=== PATIENT | female | born 1990 | race Caucasian/White ===

== ENCOUNTER 2020-01-01 18:00 | Inpatient (IN) | payer BC ==
[~2020-01-01 18:00] MED LIST: Bupivacaine/Epinephrine 0.25% 30 ML VIAL ONE; Butorphanol Tartrate 1 MG/ML VIAL SLOW IVP PRN; HYDROcodone/Acetaminophen 5/325 mg Tablet PO PRN; Ibuprofen 800 MG TAB PO PRN; Lidocaine 1% (PF) 30 ML VIAL SC PRN; NS / Oxytocin 40 units/1000ml 1,000 ML IV PRN; Ondansetron PF 4 MG/2 ML Vial IVP PRN; Promethazine HCl 25 MG/ML VIAL IM PRN; hydrALAZINE 20 MG/ML VIAL SLOW IVP PRN
[2020-01-01] MEDS ORDERED: Misoprostol 100 MCG TAB VAG SCH ×2 (20:00→23:00)
[2020-01-01] MEDS ORDERED: Lactated Ringer's 1,000 ML IV SCH (20:00)
[2020-01-01 21:50] VITALS: BMI 46.2
[2020-01-01 23:28] LABS: Hemoglobin 12.9 g/dL (12.0-16.0); Mean Corpuscular HGB CONC 34.1 g/dL (32.0-36.0); Mean Corpuscular Hemoglobin 28.6 pg (27.0-31.0); Mean Corpuscular Volume 83.8 fL (78.0-98.0); Platelet Count 214 thou/uL (130-400); RBC Distribution Width 13.1 % (11.5-14.5); Red Blood Cell (RBC) Count 4.52 mill/uL (4.20-5.40); White Blood Cell (WBC) Count 13.3 thou/uL (4.8-10.8)
[2020-01-02 00:06] LABS: Syphilis Antibody Nonreactive (Nonreactive); Syphilis Antibody Index 0.04 S/CO (<1.00 Non-Reactive)
[2020-01-02 02:04] LABS: HBSAg Index 0.22 S/CO (0-0.99); Hep B Surf Ag Non-Reactive S/CO (NonReactive)
[2020-01-02] MEDS ORDERED: Fentanyl 4 mcg/Bup 0.1% Cadd 100 ML ONE ×3 (08:43→21:06)
[2020-01-02] MEDS: Lactated Ringer's 1,000 ML IV SCH ×2 (09:19→22:41)
[2020-01-02] MEDS ORDERED: Naloxone HCl 0.4 mg/ml Vial IVP PRN ×2 (09:19)
[2020-01-02] MEDS ORDERED: diphenhydrAMINE 50 MG/ML VIAL IVP PRN (09:19)
[2020-01-02] MEDS ORDERED: Lactated Ringer's 500 ML IV PRN (09:19)
[2020-01-02] MEDS ORDERED: EPHEDRINE 25 MG/5 ML SYRINGE SLOW IVP PRN (09:19)
[2020-01-02] MEDS ORDERED: Acetaminophen 325 MG TAB PO PRN (09:19)
[2020-01-02] MEDS ORDERED: Ondansetron PF 4 MG/2 ML Vial IVP PRN (09:19)
[2020-01-02] MEDS ORDERED: Promethazine HCl 25 MG/ML VIAL IM PRN (09:19)
[2020-01-02] MEDS ORDERED: Fentanyl 4 mcg/Bupivacaine 0.1% Cassette 100 ML EPIDURAL SCH (09:30)
[2020-01-02] MEDS ORDERED: Communication Order-Pharmacy FS SCH (09:30)
[2020-01-02] MEDS ORDERED: Bupivacaine 0.5% 10 ML VIAL ONE (15:30)
[2020-01-02] MEDS ORDERED: Fentanyl 100 MCG/2 ML VIAL ONE (15:30)
[2020-01-02] MEDS ORDERED: Lidocaine 1.5%/Epinephrine 1:200,000 5 ML AMPUL IJ ONE (20:04)
[2020-01-02] MEDS: NS w/ Oxytocin 10 units 500 ML IV SCH (20:48)
[2020-01-02] MEDS ORDERED: Misoprostol 200 MCG TAB ONE ×2 (23:38→23:39)
[2020-01-03] MEDS ORDERED: diphenhydrAMINE 25 MG CAP PO PRN (01:59)
[2020-01-03] MEDS ORDERED: Benzocaine-Menthol 82.5 ML CAN TOP PRN (01:59)
[2020-01-03] MEDS ORDERED: Ondansetron PF 4 MG/2 ML Vial IVP PRN (01:59)
[2020-01-03] MEDS ORDERED: Preparation H Ointment 28 GM TUBE PR PRN (01:59)
[2020-01-03] MEDS ORDERED: Lanolin Ointment 7 GM TUBE TOP PRN (01:59)
[2020-01-03] MEDS ORDERED: Promethazine HCl 25 MG/ML VIAL IM PRN (01:59)
[2020-01-03] MEDS ORDERED: HYDROcodone/Acetaminophen 5/325 mg Tablet PO PRN ×2 (01:59)
[2020-01-03] MEDS ORDERED: Bisacodyl 10 MG SUPP PR PRN (01:59)
[2020-01-03] MEDS ORDERED: NS / Oxytocin 40 units/1000ml 1,000 ML IV SCH (01:59)
[2020-01-03] MEDS ORDERED: Milk Of Magnesia 30 ML UDCUP PO PRN (01:59)
[2020-01-03] MEDS ORDERED: hydrALAZINE 20 MG/ML VIAL SLOW IVP PRN (01:59)
[2020-01-03] MEDS ORDERED: Zolpidem Tartrate 5 MG TAB PO PRN (01:59)
[2020-01-03] MEDS: Lactated Ringer's 1,000 ML IV SCH (04:23)
[2020-01-03] MEDS: NS w/ Oxytocin 10 units 500 ML IV SCH (04:23)
[2020-01-03] MEDS: Ibuprofen 800 MG TAB PO SCH ×3 (05:16→21:40)
--- NOTE | 2020-01-03 08:26 | OP ---
DATE OF PROCEDURE: 01/03/2020 PREDELIVERY DIAGNOSES: Gestational hypertension, class A2 diabetes, and unexplained elevated MSAFP at 37 weeks' gestation. POSTDELIVERY DIAGNOSES: Gestational hypertension, class A2 diabetes, and unexplained elevated MSAFP at 37 weeks' gestation. PROCEDURES PERFORMED: Spontaneous vaginal delivery with a second-degree midline laceration. ANESTHESIA: Epidural. ESTIMATED BLOOD LOSS: 150 mL. OPERATIVE FINDINGS: 1. Vigorous male infant, weight and Apgars pending, to nursery. 2. Second-degree midline laceration repaired with 2-0 chromic. 3. Correct counts of the procedure with intact placenta delivered. DISPOSITION: Routine recovery. DESCRIPTION OF PROCEDURE: The patient was induced and underwent an approximately 28-hour Cytotec and Pitocin induction. This included spontaneous rupture of membranes early in the a.m. of 01/01 with IUPC placement and Pitocin induction of labor after Cytotec. The patient had a slow, but progressive process through labor with occasional category 2 heart rate tracing punctuated by mostly category 1 heart rate tracing. The patient became complete complete at approximately 23:45 on 01/01 and began pushing at 0 to +1 station. She brought the baby down to the level of the peritoneum and I presented for delivery. She delivered in a controlled manner with second-degree midline laceration. The infant was placed on the maternal abdomen with delayed cord clamping and cutting, and nursery was in attendance. Usual cord blood sample was obtained. Placenta was delivered spontaneously less than 5 minutes after delivery and the midline laceration was repaired in the usual manner using a 2-0 chromic suture. The patient tolerated the procedure well, was entered into routine care. Anticipated discharge on 01/03 or 01/04 pending health. Job ID: [id number]
[2020-01-03] MEDS ORDERED: Adacel (T-DAP) 0.5 ML SYRINGE IM ONE (09:00)
[2020-01-03] MEDS: Prenatal Vitamin 1 TAB PO SCH (09:01)
[2020-01-03] MEDS: Docusate Calcium (SURFAK) 240 MG CAP PO SCH ×2 (09:02→21:40)
[2020-01-03] MEDS: Ferrous Sulfate 325 MG TAB PO SCH ×2 (09:02→17:23)
[2020-01-04] MEDS: Ibuprofen 800 MG TAB PO SCH ×2 (05:27→14:13)
[2020-01-04 05:56] VITALS: TEMP 97.8
--- NOTE | 2020-01-04 08:11 | PDOC.PP ---
Post Progress Note Post Day #: 2 PO intake tolerated: yes Flatus: yes Ambulation: yes Vital Signs (12 hours) Temp Pulse Resp BP Pulse Ox 01/04/20 05:24 97.8 F 97 14 132/65 96 01/04/20 00:50 97.7 F 107 H 14 135/69 97 Weight Weight 278 lb Result Diagrams: 01/01/20 23:17 Additional Labs: Post Labs Blood Type AB POSITIVE 01/01/20 23:17 Hep Bs Antigen Non-Reactive S/CO (NonReactive) 01/01/20 23:17 - Assessment/Plan doing well poat day 1-2. d/c today f/u [address] Salazar.
[2020-01-04 08:17] VITALS: BP 145/65
[2020-01-04] MEDS: Prenatal Vitamin 1 TAB PO SCH (09:45)
[2020-01-04] MEDS: Docusate Calcium (SURFAK) 240 MG CAP PO SCH (09:46)
[2020-01-04] MEDS: Ferrous Sulfate 325 MG TAB PO SCH (09:46)
== END 2020-01-04 15:40 | disposition home or self-care (01) | DRG 807 ==
LOC: L&D 19:14 → 3SW 01-03 02:51
PROVIDERS: ADMIT Obstetrics & Gynecology; ATTEND Obstetrics & Gynecology
PROC: 10E0XZZ Delivery of Products of Conception, External Approach (ICD-10-PCS; principal; 2020-01-01)
PROC: 0KQM0ZZ Repair Perineum Muscle, Open Approach (ICD-10-PCS; 2020-01-01)
PROC: 3E0P7VZ Introduction of Hormone into Female Reproductive, Via Natural or Artificial Opening (ICD-10-PCS; 2020-01-01)
PROC: 3E033VJ Introduction of Other Hormone into Peripheral Vein, Percutaneous Approach (ICD-10-PCS; 2020-01-01)
PROC: 3E0234Z Introduction of Serum, Toxoid and Vaccine into Muscle, Percutaneous Approach (ICD-10-PCS; 2020-01-01)
PROC: 10H07YZ Insertion of Other Device into Products of Conception, Via Natural or Artificial Opening (ICD-10-PCS; 2020-01-02)
DX: O28.1 Abnormal biochemical finding on antenatal screening of mother (principal); Z37.0 Single live birth; O13.4 Gestational [pregnancy-induced] hypertension without significant proteinuria, complicating childbirth; O70.1 Second degree perineal laceration during delivery; O24.429 Gestational diabetes mellitus in childbirth, unspecified control; Z3A.37 37 weeks gestation of pregnancy; Z23 Encounter for immunization
CPT/HCPCS: 51702; 85027; 86780; 86850; 86900; 86901; 87340; 90471; 90732; G0009; J2590; J3010; J3490